=== PATIENT | male | born 1990 | race American Indian/Alaskan Native ===

== ENCOUNTER 2017-09-27 16:13 | Emergency (ER) | payer SELFPAY ==
[2017-09-27 17:00] VITALS: BMI 26.6
[2017-09-27 18:04] LABS: URINE BILIRUBIN NEGATIVE (NEGATIVE); URINE BLOOD NEGATIVE (NEGATIVE); URINE CLARITY Clear (Clear); URINE COLOR Yellow (YELLOW); URINE GLUCOSE (UA) NORMAL (Normal); URINE LEUKOCYTE ESTERASE NEG Leu/uL (Negative); URINE NITRATE NEGATIVE (NEGATIVE); URINE PROTEIN NEGATIVE (NEGATIVE); URINE UROBILINOGEN NORMAL mg/dL (0.2-1.0)
--- NOTE | 2017-09-27 18:32 | C.PDOC ---
History Of Present Illness Diane Last is a 27 year old male, with no past medical history, who presents to the emergency department complaining of pain to bilateral flank onset for x1 week. He reports the pain radiates to the around anterior portion of abdomen while working out. Patient is physically fit, and states the pain is mostly when he is working out doing pull ups at the gym. He did not take any pain medication for symptoms. He denies any fever, chills, nausea or vomit. No further medical complaints. PMD: Khoa Garcia Time Seen by Provider: 09/27/17 17:45 Chief Complaint (Nursing): Male Genitourinary History Per: Patient History/Exam Limitations: no limitations Onset/Duration Of Symptoms: Days (x1 week) Quality Of Discomfort: "Pain" Associated Symptoms: denies: Fever, Chills, Nausea, Vomiting Past Medical History Reviewed: Historical Data, Nursing Documentation, Vital Signs Vital Signs: Last Vital Signs Temp 98.7 F 09/27/17 18:41 Pulse 73 09/27/17 18:41 Resp 20 09/27/17 18:41 BP 140/72 09/27/17 18:41 Pulse Ox 98 09/27/17 18:41 - Medical History PMH: No Chronic Diseases Surgical History: No Surg Hx Family History: Denies: ME, CAD - Social History Hx Tobacco Use: No Hx Alcohol Use: Yes Hx Substance Use: No - Immunization History Hx Tetanus Toxoid Vaccination: No Hx Influenza Vaccination: Yes (2017) Hx Pneumococcal Vaccination: No Review Of Systems Constitutional: Negative for: Fever, Chills Gastrointestinal: Negative for: Nausea, Vomiting Musculoskeletal: Positive for: Other (bilateral flank pain) Physical Exam - Physical Exam Skin: Normal Color, Warm, Dry Head: Atraumatic Eye(s): bilateral: Normal Inspection Neck: Normal, Normal ROM Back: Normal Inspection, No CVA Tenderness Extremity: Normal ROM, No Deformity, No Swelling Neurological/Psych: Oriented x3 ED Course And Treatment O2 Sat by Pulse Oximetry: 100 (RA) Pulse Ox Interpretation: Normal Medical Decision Making Medical Decision Making: Initial Impression: musculoskeletal pain Initial Plan: --Urinalysis --reevaluation --Ordered UA due to pt's concern it might be his kidneys Disposition Counseled Patient/Family Regarding: Studies Performed, Diagnosis, Need For Followup, Rx Given - Disposition Referrals: [facility] at [facility] [Outside] Disposition: HOME/ ROUTINE Disposition Time: 18:30 Condition: STABLE Prescriptions: Ibuprofen [Motrin] 600 mg PO TID #15 tab Instructions: Musculoskeletal Pain (ED) Forms: [facility] (Bulgarian), General Discharge Instructions - POA Present On Arrival: None - Clinical Impression Clinical Impression: Muscle strain - Scribe Statement Daljit Guzmán Provider Attestation: All medical record entries made by the Scribe were at my direction and personally dictated by me. I have reviewed the chart and agree that the record accurately reflects my personal performance of the history, physical exam, medical decision making, and the department course for this patient. I have also personally directed, reviewed, and agree with the discharge instructions and disposition.
[2017-09-27 18:43] VITALS: BP 140/72; PULSE 73; RESP 20; TEMP 98.7
[2017-09-27 18:57] VITALS: O2SAT 100
== END 2017-09-27 18:35 | disposition home or self-care (01) ==
LOC: C.ER 16:13
DX: S39.011A Strain of muscle, fascia and tendon of abdomen, initial encounter (principal); X58.XXXA Exposure to other specified factors, initial encounter

== ENCOUNTER 2017-12-20 22:44 | Emergency (ER) | payer SELFPAY ==
[2017-12-20 22:44] VITALS: BMI 26.6
[2017-12-20 22:57] VITALS: BP 152/99; PULSE 76; RESP 20; TEMP 97.9; O2SAT 98
[2017-12-20] MEDS ORDERED: cefTRIAXone (Rocephin) 250 mg Inj IM STA (23:16)
--- NOTE | 2017-12-20 23:18 | C.PDOC ---
History Of Present Illness Patient complains of penile discharge which he noticed today. Patient admits to recent unprotected intercourse and is now concerned for STDs. He denies any dysuria, fever, penile rash or lesions, testicular pain or swelling. Time Seen by Provider: 12/20/17 23:09 Chief Complaint (Nursing): Male Genitourinary History Per: Patient History/Exam Limitations: no limitations Onset/Duration Of Symptoms: Hrs Severity: None Past Medical History Reviewed: Historical Data, Nursing Documentation, Vital Signs Vital Signs: Last Vital Signs Temp 97.9 F 12/20/17 22:54 Pulse 76 12/20/17 22:54 Resp 20 12/20/17 22:54 BP 152/99 H 12/20/17 22:54 Pulse Ox 98 12/20/17 22:54 - Medical History PMH: No Chronic Diseases Surgical History: No Surg Hx Family History: States: Unknown Family Hx - Social History Hx Tobacco Use: No Hx Alcohol Use: Yes Hx Substance Use: No - Immunization History Hx Tetanus Toxoid Vaccination: No Hx Influenza Vaccination: Yes (2017) Hx Pneumococcal Vaccination: No Review Of Systems Except As Marked, All Systems Reviewed And Found Negative. Genitourinary: Positive for: Penile Discharge Physical Exam - Physical Exam Appears: Well, Non-toxic, No Acute Distress Skin: Normal Color, Warm, Dry, No Rash Head: Atraumatic, Normacephalic Eye(s): bilateral: Normal Inspection, EOMI Neck: Normal ROM Chest: Symmetrical Male Genital: No Testicular Tenderness, No Inguinal Tenderness, No Scrotal Swelling, Circumcised, Other (+ clear penile discharge) Extremity: Bilateral: Atraumatic, Normal Color And Temperature, Normal ROM Neurological/Psych: Oriented x3, Normal Speech ED Course And Treatment O2 Sat by Pulse Oximetry: 98 Medical Decision Making Medical Decision Making: Patient with penile discharge and possible exposure to STD. Urine collected and sent to lab. Will treat prophylactically with Rocephin and Zithromax. Patient informed results will take few days and can call back. He also should contact partner and follow up in clinic. Disposition Counseled Patient/Family Regarding: Diagnosis - Disposition Referrals: [facility] at [facility] [Outside] Disposition: HOME/ ROUTINE Disposition Time: 23:21 Condition: GOOD Additional Instructions: You were treated with Zithromax and Rocephin for STD gonorrhea/chlamydia Results can take 3 days, call [phone] Follow up in the clinic Forms: [facility] (Swazi), [facility] - POA Present On Arrival: None - Clinical Impression Clinical Impression: Urethritis, unspecified, Exposure to STD
[2017-12-20 23:28] LABS: SQUAMOUS EPITHIAL 1 /hpf (0-5); URINE BACTERIA FEW (<OCC); URINE BILIRUBIN NEGATIVE (NEGATIVE); URINE BLOOD 1+ (NEGATIVE); URINE CLARITY Clear (Clear); URINE COLOR Straw (YELLOW); URINE GLUCOSE (UA) NORMAL (Normal); URINE PROTEIN NEGATIVE (NEGATIVE); URINE UROBILINOGEN NORMAL mg/dL (0.2-1.0)
[2017-12-20 23:29] LABS: URINE LEUKOCYTE ESTERASE 1+ Leu/uL (Negative)
== END 2017-12-20 23:45 | disposition home or self-care (01) ==
LOC: C.ER 22:44
DX: N34.2 Other urethritis (principal); Z20.2 Contact with and (suspected) exposure to infections with a predominantly sexual mode of transmission

== ENCOUNTER 2018-10-10 03:50 | Emergency (ER) | payer SELFPAY ==
[2018-10-10 03:51] VITALS: BMI 26.6
[2018-10-10 04:02] VITALS: BP 157/100; PULSE 70; RESP 14; TEMP 97.6; O2SAT 97
[2018-10-10] MEDS ORDERED: cefTRIAXone 250 MG, Lidocaine Hydrochloride 1% 1 ML IM ONE (04:09)
[2018-10-10 04:23] LABS: SQUAMOUS EPITHIAL < 1 /hpf (0-5); URINE BILIRUBIN NEGATIVE (NEGATIVE); URINE BLOOD 1+ (NEGATIVE); URINE CLARITY Hazy (Clear); URINE COLOR Yellow (YELLOW); URINE GLUCOSE (UA) NORMAL (Normal); URINE LEUKOCYTE ESTERASE 3+ Leu/uL (Negative); URINE PROTEIN 1+ mg/dL (NEGATIVE)
--- NOTE | 2018-10-10 04:29 | C.PDOC ---
History Of Present Illness 28 year old male presents to the ER with dysuria and penile discharge for the past 2 days. Patient admits to unprotected sex approximately 2 weeks ago. Denies rash, abdominal pain, fever, or penile lesions. Time Seen by Provider: 10/10/18 03:54 Chief Complaint (Nursing): Male Genitourinary History Per: Patient History/Exam Limitations: no limitations Onset/Duration Of Symptoms: Days Current Symptoms Are (Timing): Still Present Quality Of Discomfort: Unable To Describe Associated Symptoms: Other (Dysuria, Penile discharge) Alleviating Factors: None Recent travel outside of the [place]: No Past Medical History Reviewed: Historical Data, Nursing Documentation, Vital Signs Vital Signs: Last Vital Signs Temp 97.6 F 10/10/18 03:59 Pulse 70 10/10/18 03:59 Resp 14 10/10/18 03:59 BP 157/100 H 10/10/18 03:59 Pulse Ox 97 10/10/18 03:59 Family History: States: Unknown Family Hx - Social History Hx Tobacco Use: No Hx Alcohol Use: Yes Hx Substance Use: No - Immunization History Hx Tetanus Toxoid Vaccination: No Hx Influenza Vaccination: Yes (2017) Hx Pneumococcal Vaccination: No Review Of Systems Except As Marked, All Systems Reviewed And Found Negative. Genitourinary: Positive for: Dysuria, Penile Discharge Physical Exam - Physical Exam Appears: Non-toxic, No Acute Distress Skin: Normal Color, Warm, Dry Head: Atraumatic, Normacephalic Eye(s): bilateral: Normal Inspection Oral Mucosa: Moist Chest: Symmetrical, No Tenderness Cardiovascular: Rhythm Regular Respiratory: Normal Breath Sounds, No Rales, No Rhonchi, No Wheezing Gastrointestinal/Abdominal: Soft, No Tenderness Male Genital: Other (Deferred) Neurological/Psych: Oriented x3, Normal Speech ED Course And Treatment - Laboratory Results Lab Results: Urine Color Yellow (YELLOW) 10/10/18 04:05 Urine Clarity Hazy (Clear) 10/10/18 04:05 Urine pH 6.0 (5.0-8.0) 10/10/18 04:05 Ur Specific [place] 1.026 (1.003-1.030) 10/10/18 04:05 Urine Protein 1+ mg/dL (NEGATIVE) H 10/10/18 04:05 Urine Glucose (UA) Normal mg/dL (Normal) 10/10/18 04:05 Urine Ketones Negative mg/dL (NEGATIVE) 10/10/18 04:05 Urine Blood 1+ (NEGATIVE) H 10/10/18 04:05 Urine Nitrate Negative (NEGATIVE) 10/10/18 04:05 Urine Bilirubin Negative (NEGATIVE) 10/10/18 04:05 Urine Urobilinogen 2.0 mg/dL (0.2-1.0) 10/10/18 04:05 Ur Leukocyte Esterase 3+ Martina/uL (Negative) H 10/10/18 04:05 Urine WBC (Auto) 303 /hpf (0-5) H 10/10/18 04:05 Urine RBC (Auto) 19 /hpf (0-3) H 10/10/18 04:05 Ur Squamous Epith Cells < 1 /hpf (0-5) 10/10/18 04:05 O2 Sat by Pulse Oximetry: 97 (Room air) Pulse Ox Interpretation: Normal Progress Note: UA and Ugc sent, UA positive for UTI. Rocephin and zithromax administered and patient given Rx for flagyl. Disposition Counseled Patient/Family Regarding: Studies Performed, Diagnosis, Need For Followup, Rx Given - Disposition Referrals: [facility] at [facility] [Outside] Disposition: HOME/ ROUTINE Disposition Time: 04:30 Condition: STABLE Additional Instructions: FOLLOW UP WITH YOUR DOCTOR OR CLINIC IN 1-2 DAYS FINISH ANTIBIOTICS NO SEX X 7 DAYS HAVE SEXUAL PARTNER(S) TESTED/TREATED RETURN TO ER IF SYMPTOMS WORSEN Prescriptions: metroNIDAZOLE [Flagyl] 500 mg PO BID #14 tab Instructions: Urethritis (DC) Forms: [employer] (Persian) Print Language: KUWAITI - Clinical Impression Clinical Impression: Urethritis - Scribe Statement The provider has reviewed the documentation as recorded by the Scribvalentine Jimenez All medical record entries made by the Deliaibvalentine were at my direction and personally dictated by me. I have reviewed the chart and agree that the record accurately reflects my personal performance of the history, physical exam, medical decision making, and the department course for this patient. I have also personally directed, reviewed, and agree with the discharge instructions and disposition.
== END 2018-10-10 04:51 | disposition home or self-care (01) ==
LOC: C.ER 03:50
DX: N34.2 Other urethritis (principal)
CPT/HCPCS: 81001; 82948; 87086; 87491; 87591; 96372; 99284; J0696

== ENCOUNTER 2018-10-12 14:45 | Emergency (ER) | payer OTHER ==
[2018-10-12 15:06] VITALS: BMI 27.3
[2018-10-12 15:09] VITALS: BP 133/82; PULSE 62; RESP 18; TEMP 98.2; O2SAT 100
--- NOTE | 2018-10-12 15:58 | C.PDOC ---
History Of Present Illness 28 y/o male presents to the ED for evaluation of diarrhea for 4 days. No associated abdominal pain, fever, or chills. Patient denies any dark or bloody stool. He was seen here on 10/09/18 and given medication. States he took imodium once 2 days ago and since then the episodes seem to be improving. Patient notes he has an episode after every meal. He has not moved bowels yet today, but also has not eaten anything yet. Time Seen by Provider: 10/12/18 15:27 Chief Complaint (Nursing): GI Problem History Per: Patient History/Exam Limitations: no limitations Onset/Duration Of Symptoms: Days Current Symptoms Are (Timing): Better Pain Scale Rating Of: 0 Associated Symptoms: Diarrhea Past Medical History Reviewed: Historical Data, Nursing Documentation, Vital Signs Vital Signs: Last Vital Signs Temp 98.2 F 10/12/18 15:06 Pulse 62 10/12/18 15:06 Resp 18 10/12/18 15:06 BP 133/82 10/12/18 15:06 Pulse Ox 100 10/12/18 15:06 Surgical History: No Surg Hx Family History: States: Unknown Family Hx - Social History Hx Tobacco Use: No Hx Alcohol Use: Yes Hx Substance Use: No - Immunization History Hx Tetanus Toxoid Vaccination: No Hx Influenza Vaccination: Yes (2017) Hx Pneumococcal Vaccination: No Review Of Systems Except As Marked, All Systems Reviewed And Found Negative. Constitutional: Negative for: Fever, Chills Cardiovascular: Negative for: Palpitations Respiratory: Negative for: Shortness of Breath Gastrointestinal: Positive for: Diarrhea. Negative for: Vomiting, Abdominal Pain, Melena, Hematochezia Skin: Negative for: Rash Neurological: Negative for: Weakness, Dizziness Physical Exam - Physical Exam Appears: Well, Non-toxic, No Acute Distress Skin: Warm, Dry, No Rash Head: Atraumatic, Normacephalic Eye(s): bilateral: Normal Inspection, PERRL, EOMI Oral Mucosa: Moist Throat: No Erythema, No Exudate Neck: Normal ROM, Supple Chest: Symmetrical, No Tenderness Cardiovascular: Rhythm Regular, No Murmur Respiratory: Normal Breath Sounds, No Accessory Muscle Use, Other (Speaking in complete sentences) Gastrointestinal/Abdominal: Soft, No Tenderness, No Distention, No Guarding Back: Normal Inspection, No CVA Tenderness Extremity: Normal ROM, No Swelling Extremity: Bilateral: Atraumatic, Normal Color And Temperature Neurological/Psych: Oriented x3, Normal Motor, Normal Sensation Gait: Steady ED Course And Treatment O2 Sat by Pulse Oximetry: 100 (RA) Pulse Ox Interpretation: Normal Medical Decision Making Medical Decision Making: Plan: * 2mg PO imodium given On re-exam, the patient reports improvement of symptoms. Lungs are CTA, heart is RRR, abdomen is soft, non-tender and tolerating PO well. Ambulatory in the ED with steady gait. Follow up with the medical doctor within 1-2 days. return if worsened. Disposition - Disposition [facility]Outside[facility] Disposition: HOME/ ROUTINE Disposition Time: 16:06 Condition: STABLE Additional Instructions: Follow up with the medical doctor within 1-2 days, return if worsened. Instructions: Viral Syndrome (DC) Forms: [employer] (Zambian) - Clinical Impression Clinical Impression: Viral syndrome - PA / FORENSIC SCIENTIST / Resident Statement MD/DO has reviewed & agrees with the documentation as recorded. - Scribe Statement The provider has reviewed the documentation as recorded by the Scribe Emily Jorge All medical record entries made by the Scribe were at my direction and personally dictated by me. I have reviewed the chart and agree that the record accurately reflects my personal performance of the history, physical exam, medical decision making, and the department course for this patient. I have also personally directed, reviewed, and agree with the discharge instructions and disposition.
== END 2018-10-12 16:18 | disposition home or self-care (01) ==
LOC: C.ER 14:45
DX: B34.9 Viral infection, unspecified (principal)

== ENCOUNTER 2018-12-13 22:49 | Emergency (ER) | payer OTHER ==
[2018-12-13 22:49] VITALS: BMI 27.3
[2018-12-13 23:03] VITALS: TEMP 98.2; O2SAT 100
--- NOTE | 2018-12-13 23:32 | C.PDOC ---
History Of Present Illness Patient presents to ED c/o abdominal cramping since yesterday. He denies fever, chest pain, SOB, nausea/vomiting/diarrhea, dysuria/hematuria, unusual food intake, sick conacts. Time Seen by Provider: 12/13/18 22:57 Chief Complaint (Nursing): Abdominal Pain History Per: Patient History/Exam Limitations: no limitations Onset/Duration Of Symptoms: Days Severity: Mild Location Of Pain/Discomfort: Diffuse Quality Of Discomfort: Cramping Associated Symptoms: denies: Fever, Chills, Nausea, Diarrhea, Urinary Symptoms Past Medical History Reviewed: Historical Data, Nursing Documentation, Vital Signs Vital Signs: Last Vital Signs Temp 98.2 F 12/13/18 22:59 Pulse 79 12/13/18 22:59 Resp 20 12/13/18 22:59 BP 134/83 12/13/18 22:59 Pulse Ox 100 12/13/18 22:59 - Medical History PMH: No Chronic Diseases Surgical History: No Surg Hx Family History: States: No Known Family Hx - Social History Hx Tobacco Use: No Hx Alcohol Use: Yes Hx Substance Use: No - Immunization History Hx Tetanus Toxoid Vaccination: No Hx Influenza Vaccination: Yes (2017) Hx Pneumococcal Vaccination: No Review Of Systems Constitutional: Negative for: Fever, Chills Cardiovascular: Negative for: Chest Pain Respiratory: Negative for: Shortness of Breath Gastrointestinal: Positive for: Other (abdominal cramps). Negative for: Nausea, Vomiting, Abdominal Pain, Diarrhea, Constipation Genitourinary: Negative for: Dysuria, Hematuria Skin: Negative for: Rash Physical Exam - Physical Exam Appears: Well, Non-toxic, No Acute Distress Skin: Normal Color, Warm, Dry Eye(s): bilateral: Normal Inspection Oral Mucosa: Moist Chest: Symmetrical Cardiovascular: Rhythm Regular Respiratory: Normal Breath Sounds, No Rales, No Rhonchi, No Wheezing Gastrointestinal/Abdominal: Normal Exam, Bowel Sounds, Soft, No Tenderness, No Distention, No Guarding, No Rebound Back: Normal Inspection, No CVA Tenderness Extremity: Bilateral: Atraumatic, Normal Color And Temperature, Normal ROM Neurological/Psych: Oriented x3 ED Course And Treatment O2 Sat by Pulse Oximetry: 100 (RA) Pulse Ox Interpretation: Normal Progress Note: Patient given PO Bentyl. On reassessment, he reports cramps resolved. Patient is well appearing, with normal vitals, and is comfortable being discharged home. He was instructed to follow up with PMD in 1-2 days, and with Gi within 1 week. He understands he should return to ED if symptoms worsen. Disposition Counseled Patient/Family Regarding: Diagnosis, Need For Followup - Disposition Referrals: Khoa Garcia MD [Staff Provider] - Jayce Baptiste MD [Staff Provider] - Disposition: HOME/ ROUTINE Disposition Time: 00:00 Condition: STABLE Additional Instructions: FOLLOW UP WITH RADIAL ARM SAW OPERATOR WITHIN 1 WEEK USE MEDICATION NEEDED DRINK PLENTY OF FLUIDS RETURN TO ER IF SYMPTOMS WORSEN Prescriptions: Dicyclomine [Bentyl] 20 mg PO Q6 PRN #15 tab PRN Reason: ABDOMINAL CRAMPING Forms: [facility] (Surinamese), General Discharge Instructions Print Language: GREEK - Clinical Impression Clinical Impression: Abdominal cramps
[2018-12-13 23:51] VITALS: BP 127/78; PULSE 78; RESP 17
== END 2018-12-13 23:51 | disposition home or self-care (01) ==
LOC: C.ER 22:49
DX: R10.9 Unspecified abdominal pain (principal)

== ENCOUNTER 2019-02-05 11:10 | Emergency (ER) | payer OTHER ==
[2019-02-05 11:18] VITALS: BMI 25.8
[2019-02-05 11:19] VITALS: BP 133/85; PULSE 68; RESP 18; TEMP 98.6; O2SAT 100
--- NOTE | 2019-02-05 11:45 | C.PDOC ---
History Of Present Illness 28 year old male presents to the emergency department with complaints of a painful lump noted to the back of his head this morning. Patient denies trauma and fever. Patient states that his pain is radiating to his neck. Time Seen by Provider: 02/05/19 11:31 Chief Complaint (Nursing): Abnormal Skin Integrity History Per: Patient History/Exam Limitations: no limitations Onset/Duration Of Symptoms: Hrs Current Symptoms Are (Timing): Still Present Location Of Injury: Posterior: Head, Neck Quality Of Symptoms: Painful, Other ("lump") Past Medical History Reviewed: Historical Data, Nursing Documentation, Vital Signs Vital Signs: Last Vital Signs Temp 98.6 F 02/05/19 11:17 Pulse 68 02/05/19 11:17 Resp 18 02/05/19 11:17 BP 133/85 02/05/19 11:17 Pulse Ox 100 02/05/19 11:17 Primary Care Provider: Khoa Garcia - Medical History PMH: No Chronic Diseases Surgical History: No Surg Hx Family History: States: No Known Family Hx - Social History Hx Tobacco Use: No Hx Alcohol Use: Yes Hx Substance Use: No - Immunization History Hx Tetanus Toxoid Vaccination: No Hx Influenza Vaccination: Yes (2017) Hx Pneumococcal Vaccination: No Review Of Systems Except As Marked, All Systems Reviewed And Found Negative. Constitutional: Negative for: Fever, Chills Cardiovascular: Negative for: Chest Pain Respiratory: Negative for: Cough, Shortness of Breath Gastrointestinal: Negative for: Nausea, Vomiting, Abdominal Pain, Diarrhea Skin: Positive for: Other (painful lump) Physical Exam - Physical Exam Appears: Non-toxic, No Acute Distress Skin: Warm, Dry, Other (1cm x 2cm small, pea-sized, painful pimple to the left occipital area (near the hairline) with minimal induration. No fluctuance, no erythema.) Head: Atraumatic, Normacephalic Eye(s): bilateral: Normal Inspection Neck: Normal, No Midline Cervical Tenderness, No Paracervical Tenderness, Supple Chest: Symmetrical Neurological/Psych: Oriented x3 ED Course And Treatment O2 Sat by Pulse Oximetry: 100 (RA) Pulse Ox Interpretation: Normal Progress Note: Patient told to f/u with PMD. Reassessment Condition: Improved Disposition Counseled Patient/Family Regarding: Diagnosis, Need For Followup, Rx Given - Disposition Referrals: Khoa Garcia MD [Staff Provider] - Disposition: HOME/ ROUTINE Disposition Time: 11:42 Condition: STABLE Additional Instructions: Apply warm compress to area Do not scratch area Take medications as directed Return to ER if worse Prescriptions: Cephalexin [cephalexin] 500 mg PO QID #28 cap Ibuprofen [Motrin] 600 mg PO Q6H #30 tab Instructions: Folliculitis (DC) Forms: [facility] (Macedonian) - Clinical Impression Clinical Impression: Folliculitis - PA / CENTER DIRECTOR / Resident Statement / has reviewed & agrees with the documentation as recorded. - Scribe Statement The provider has reviewed the documentation as recorded by the Scribe (Sujit Story) All medical record entries made by the Scribe were at my direction and personally dictated by me. I have reviewed the chart and agree that the record accurately reflects my personal performance of the history, physical exam, medical decision making, and the department course for this patient. I have also personally directed, reviewed, and agree with the discharge instructions and disposition.
== END 2019-02-05 11:53 | disposition home or self-care (01) ==
LOC: C.ER 11:10
DX: L73.9 Follicular disorder, unspecified (principal)